=== PATIENT | male | born 1965 | race Caucasian/White ===

== ENCOUNTER 2019-08-26 20:06 | Emergency (ER) | payer MEDICAID ==
[~2019-08-26] VITALS: Ht 180.3 cm; Wt 74.8 kg
[2019-08-26 20:48] LABS: BASOPHILS # (AUTO) 0.1 /CMM (0.0-0.2); BASOPHILS % (AUTO) 0.9 % (0.0-2.0); EOSINOPHILS % (AUTO) 0.6 % (0.0-6.0); HEMATOCRIT 45 % (39-51); HEMOGLOBIN 15.2 g/dL (13.5-17.5); LYMPHOCYTES # (AUTO) 1.4 /CMM (0.8-4.8); MEAN CORPUSCULAR HGB CONC 34 g/dl (31.0-36.0); MEAN CORPUSCULAR VOLUME 95 fL (80-96); MONOCYTES # (AUTO) 0.7 /CMM (0.1-1.30); MONOCYTES % (AUTO) 9.9 % (2.0-12.0); NEUTROPHILS # (AUTO) 4.9 /CMM (1.8-8.9); NEUTROPHILS % (AUTO) 68.6 % (43.0-81.0); PLATELET COUNT (AUTO) 323 /CMM (150-450); RED BLOOD CELL COUNT(AUTO) 4.74 MIL/uL (4.5-6.0); WHITE BLOOD COUNT (AUTO) 7.2 K/uL (4.3-11.0)
[2019-08-26 20:52] LABS: APPEARANCE,URINE Clear (CLEAR); BILIRUBIN,URINE Negative (NEGATIVE); BLOOD, URINE Negative Ery/uL (NEGATIVE); COLOR,URINE Yellow (YELLOW); KETONES,URINE Negative (NEGATIVE); LEUKOCYTE ESTERASE ,URINE Negative (NEGATIVE); NITRITE, URINE Negative (NEGATIVE); PROTEIN,URINE Negative (NEGATIVE); UGLUCOSE Negative (NEGATIVE); UROBILINOGEN,URINE 0.2 EU/dL (0.2)
[2019-08-26 20:57] LABS: CARBON DIOXIDE 31 mmol/L (21-32); CHLORIDE 107 mmol/L (98-107); CREATININE 1.2 mg/dL (0.6-1.3); GLUCOSE 113 mg/dL (74-106); POTASSIUM 4.4 mmol/L (3.5-5.1); SODIUM SERUM 147 mmol/L (136-145); UREA NITROGEN, BLOOD 13 mg/dL (7-18)
[2019-08-26 21:03] LABS: ALANINE AMINOTRANSFERASE 47 U/L (12-78); ALBUMIN 3.7 g/dL (3.4-5.0); ALCOHOL, BLOOD 172 mg/dL (0-0); ALKALINE PHOSPHATASE 89 U/L (46-116); ASPARTATE AMINOTRANSFERASE 36 U/L (15-37); BILIRUBIN,DIRECT 0.1 mg/dL (0.0-0.2); BILIRUBIN,TOTAL 0.3 mg/dL (0.2-1.0); TOTAL PROTEIN, SERUM 7.3 g/dL (6.4-8.2)
[2019-08-26 21:11] LABS: ACETAMINOPHEN < 2 ug/ml (10-30); SALICYLATE 2.5 mg/dL (2.8-20.0)
[2019-08-26] MEDS ORDERED: ACETAMINOPHEN ES 500 MG TABLET ONE (21:43)
--- NOTE | 2019-08-26 21:59 | NUR ---
PATIENT NO LONGER WANTS TO STAY IN ER. PATIENT DENIES SUICIDAL OR HOMICIDAL IDEATION. DR WHATLEY AT BEDSIDE.
[2019-08-26] MEDS ORDERED: ACETAMINOPHEN ES 500 MG TABLET PO ONE (22:00)
--- NOTE | 2019-08-26 22:05 | NUR ---
PT OK TO DISCHARGE PER DR WHATLEY. PT LEFT WITHOUT WAITING FOR DISCHARGE PAPERWORK.
[2019-08-27 06:37] VITALS: BP 145/91
== END 2019-08-26 22:05 | disposition home or self-care (01) ==
LOC: ER 20:10
DX: R45.851 Suicidal ideations (principal); F10.10 Alcohol abuse, uncomplicated; F32.9 Major depressive disorder, single episode, unspecified; Y90.6 Blood alcohol level of 120-199 mg/100 ml
CPT/HCPCS: 36415; 80048; 80076; 80305; 80307; 80329; 81001; 85025; 99283; G0480; 81000-TC

== ENCOUNTER 2019-12-13 14:53 | Emergency (ER) | payer MEDICAID, OTHER ==
[~2019-12-13] VITALS: Ht 182.9 cm; Wt 88.5 kg
--- NOTE | 2019-12-13 15:00 | NUR ---
BIB SELF C/O SI NO SPECIFIC PLAN WANTS TO GO [facility], TO ER BED 10, HOOKED TO MONITOR, CHANGED TO HOSP GOWN, WARM BLABKET PROVIDED, DR GARCIA AT BEDSIDE, SITTER AT BEDSIDE
--- NOTE | 2019-12-13 15:09 | NUR ---
SECURITY AT BEDSIDE FOR WANDING OF PATIENT AND BELONGINGS. BELONGINGS PLACED IN PATIENT BELONGINGS LOCKER.
[2019-12-13 15:21] LABS: BASOPHILS # (AUTO) 0.1 /CMM (0.0-0.2); BASOPHILS % (AUTO) 0.8 % (0.0-2.0); EOSINOPHILS % (AUTO) 1.4 % (0.0-6.0); HEMATOCRIT 43 % (39-51); HEMOGLOBIN 14.3 g/dL (13.5-17.5); LYMPHOCYTES # (AUTO) 1.3 /CMM (0.8-4.8); LYMPHOCYTES % (AUTO) 19.3 % (20.0-44.0); MEAN CORPUSCULAR HGB CONC 34 g/dl (31.0-36.0); MEAN CORPUSCULAR VOLUME 97 fL (80-96); MONOCYTES # (AUTO) 0.6 /CMM (0.1-1.30); MONOCYTES % (AUTO) 9.5 % (2.0-12.0); NEUTROPHILS # (AUTO) 4.7 /CMM (1.8-8.9); PLATELET COUNT (AUTO) 315 /CMM (150-450); RED BLOOD CELL COUNT(AUTO) 4.39 MIL/uL (4.5-6.0); WHITE BLOOD COUNT (AUTO) 6.8 K/uL (4.3-11.0)
--- NOTE | 2019-12-13 15:31 | NUR ---
URINE SAMPLE COLLECTED AND SENT TO LAB
[2019-12-13 15:33] LABS: APPEARANCE,URINE Clear (CLEAR); BILIRUBIN,URINE Negative (NEGATIVE); BLOOD, URINE Negative Ery/uL (NEGATIVE); COLOR,URINE Yellow (YELLOW); KETONES,URINE Negative (NEGATIVE); LEUKOCYTE ESTERASE ,URINE Negative (NEGATIVE); NITRITE, URINE Negative (NEGATIVE); PH,URINE 5.5 (5.0-8.0); PROTEIN,URINE Negative (NEGATIVE); UGLUCOSE Negative (NEGATIVE); UROBILINOGEN,URINE 0.2 EU/dL (0.2)
[2019-12-13 15:42] LABS: ALBUMIN 3.5 g/dL (3.4-5.0); BILIRUBIN,DIRECT 0.1 mg/dL (0.0-0.2); BILIRUBIN,TOTAL 0.3 mg/dL (0.2-1.0); CALCIUM, SERUM 8.6 mg/dL (8.5-10.1); CREATININE 0.9 mg/dL (0.6-1.3); TOTAL PROTEIN, SERUM 6.7 g/dL (6.4-8.2)
[2019-12-13 15:50] LABS: SALICYLATE 2.5 mg/dL (2.8-20.0)
--- NOTE | 2019-12-13 16:42 | NUR ---
patient in bed asleep, easily arousable by voice. hooked to monitor, VSS. will continue to monitor accordingly, sitter at bedside
--- NOTE | 2019-12-13 18:28 | NUR ---
PATIENT IN BED ASLEEP, EASILY AROUSABLE BY VOICE. HOOKED TO MONITOR, VSS. NOT IN DISTRESS. WILL CONTINUE TO MONITOR ACCORDINGLY. SITTER AT BEDSIDE.
--- NOTE | 2019-12-13 19:23 | NUR ---
REPORT GIVEN TO SAMSON GARCIA FOR [facility]
--- NOTE | 2019-12-13 20:45 | NUR ---
SPOKE WITH KOURTNEY FROM [facility], STILL NO BEDS AVAILABLE AT THIS TIME
--- NOTE | 2019-12-13 21:56 | NUR ---
SPOKE WITH DONALD FROM [facility], NO BEDS AVAILABLE AT THIS TIME
--- NOTE | 2019-12-13 21:57 | NUR ---
CALLED [facility], NO BEDS AVAILABLE AT THIS TIME
--- NOTE | 2019-12-13 22:07 | NUR ---
PT RESTING COMFORTABLY IN BED. VITAL SIGNS STABLE. SITTER AT BEDSIDE. WILL CONTINUE TO MONITOR
--- NOTE | 2019-12-14 02:12 | NUR ---
PT RESTING COMFORTABLY IN BED. VITAL SIGNS STABLE. SITTER AT BEDSIDE. WILL CONTINUE TO MONITOR. SITTER AT BEDSIDE FOR SAFETY
--- NOTE | 2019-12-14 02:36 | NUR ---
PT C/O BACK PAIN AND REQUESTING IBUPROFEN. AWARE
[2019-12-14] MEDS ORDERED: IBUPROFEN 600 MG TABLET PO ONE ×2 (02:37→03:00)
--- NOTE | 2019-12-14 05:37 | NUR ---
PT RESTING COMFORTABLY IN BED. VITAL SIGNS STABLE. SITTER AT BEDSIDE. WILL CONTINUE TO MONITOR
--- NOTE | 2019-12-14 08:03 | NUR ---
ASSUME PT CARE. VERBALLY RESPONSIVE. C/O BACK PAIN AND REQUESTING FOR IBUPROFEN. STABLE VITALS. WILL CONTINUE TO MONITOR.
--- NOTE | 2019-12-14 08:07 | NUR ---
CALL BACK FROM [facility],ACCEPTED FOR [place],WAITING ON A BED
--- NOTE | 2019-12-14 08:42 | NUR ---
RECIEVED A CALL FROM JT NAVARRO. PT ACCEPTED AT [facility]. ROOM NUMBER [id number]. NUMBER FOR REPORT [phone].
--- NOTE | 2019-12-14 08:43 | NUR ---
[employer] AIDE was informed by Buddy at [facility] pt has been accepted to [place]. Bed 419/B. Report needs to be called to . [employer] AIDE updated Berry in ED.
--- NOTE | 2019-12-14 08:44 | NUR ---
ACCEPTED BY DR VALDEZ, GOING TO [facility] 419.B REPORT TO [phone] EXT [phone]
--- NOTE | 2019-12-14 08:51 | NUR ---
CALLED [facility] FOR TRANSPORT TO [facility]. ETA 1330.
--- NOTE | 2019-12-14 09:05 | NUR ---
CALLED [facility] FOR TRASNPORT TO [facility]. ETA 45 MINUTES.
--- NOTE | 2019-12-14 09:19 | NUR ---
REPORT GIVEN TO DAYANA AT [facility]. AWAITING TRANSFER.
--- NOTE | 2019-12-14 10:09 | NUR ---
TRANSFERED TO [facility] IN STABLE CONDITION.
[2019-12-14 10:10] VITALS: BP 125/84
== END 2019-12-14 10:13 ==
LOC: ER 15:00
DX: F32.9 Major depressive disorder, single episode, unspecified (principal); R45.851 Suicidal ideations; F41.9 Anxiety disorder, unspecified
CPT/HCPCS: 36415; 80048; 80076; 80305; 80307; 80329; 81001; 85025; 99285; G0480; 81000-TC